=== PATIENT | female | born 1975 | race Caucasian/White ===

== ENCOUNTER 2018-06-02 05:01 | Day surgery (SDC) | payer OTHER ==
[2018-05-31 12:05] VITALS: BMI 29.9
[2018-06-02] MEDS ORDERED: MIDAZOLAM HCL 2 MG/2 ML SINGLE DOSE VIAL ONE (15:20)
[2018-06-02] MEDS ORDERED: LIDOCAINE HCL/PF 2% SDV 5ML VIAL ONE (15:20)
[2018-06-02] MEDS ORDERED: PROPOFOL 20 ML ONE (15:20)
--- NOTE | 2018-06-02 15:24 | HP ---
Admitting History and Physical - Admission Chief Complaint: Multiparity / Desires permanent sterilization History of Present Illness: 43 yo Para 2 desires permanent sterilization. She's pre op for Laparoscopic bilateral tubal ligation. History Source: Patient Limitations to Obtaining History: No Limitations - Past Medical History ...LMP: 05/24/18 ...: No ...Para: 2 - Smoking History Smoking history: Never smoked - Alcohol/Substance Use Hx Alcohol Use: No Home Medications - Allergies Allergies/Adverse Reactions: Allergies Allergy/AdvReac Type Severity Reaction Status Date / Time No Known Allergies Allergy Verified 06/02/18 14:26 - Home Medications Home Medications: Ambulatory Orders NK [No Known Home Medication] 02/09/17 Family Disease History - Family Disease History Family History: Unremarkable Review of Systems - Review of Systems Constitutional: reports: No Symptoms Eyes: reports: No Symptoms HENT: reports: No Symptoms Neck: reports: No Symptoms Cardiovascular: reports: No Symptoms Respiratory: reports: No Symptoms Gastrointestinal: reports: No Symptoms Genitourinary: reports: No Symptoms Breasts: reports: No Symptoms Reported Musculoskeletal: reports: No Symptoms Integumentary: reports: No Symptoms Neurological: reports: No Symptoms Endocrine: reports: No Symptoms Hematology/Lymphatic: reports: No Symptoms Psychiatric: reports: No Symptoms Pain Intensity: 0 Physical Examination Vital Signs: Vital Signs Temperature 98.4 F 06/02/18 14:24 Pulse Rate 100 H 06/02/18 14:24 Respiratory Rate 20 06/02/18 14:24 Blood Pressure 123/60 06/02/18 14:24 O2 Sat by Pulse Oximetry (%) 99 06/02/18 14:24 Constitutional: Yes: Well Nourished Eyes: Yes: Conjunctiva Clear HENT: Yes: Atraumatic Neck: Yes: Supple Cardiovascular: Yes: Regular Rate and Rhythm Respiratory: Yes: Regular Gastrointestinal: Yes: Normal Bowel Sounds Neurological: Yes: Alert, Oriented ...Motor Strength: WNL Psychiatric: Yes: Alert, Oriented Problem List - Problems (1) Multiparity Code(s): Z64.1 - PROBLEMS RELATED TO MULTIPARITY Assessment/Plan Multiparity Pre op for tubal ligation Consent signed Anesthesia to see patient
[2018-06-02] MEDS ORDERED: ONDANSETRON 4 MG/2 ML VIAL IVPUSH PRN (15:37)
[2018-06-02] MEDS ORDERED: oxyCODONE HCL 5 MG TABLET PO PRN (15:37)
[2018-06-02] MEDS ORDERED: ROCURONIUM BROMIDE 50 MG/5 ML VIAL ONE (15:39)
[2018-06-02] MEDS ORDERED: LACTATED RINGERS SOLUTION 1,000 ML IV SCH (15:45)
[2018-06-02] MEDS ORDERED: BUPIVACAINE HCL/PF 0.5% (5MG/ML) 10 ML VIAL ONE (15:57)
[2018-06-02] MEDS ORDERED: BUPIVACAINE HCL/PF (5 MG/ML) 30 ML VIAL IJ ONE (16:34)
[2018-06-02] MEDS ORDERED: NEOSTIGMINE METHYLSULFATE 0.5 MG/ML - 10 ML MDV ONE (16:35)
[2018-06-02] MEDS ORDERED: GLYCOPYRROLATE 0.2 MG/1 ML VIAL ONE (16:35)
--- NOTE | 2018-06-02 16:45 | OP ---
Operative Note - Note: Operative Date: 06/02/18 Pre-Operative Diagnosis: Multiparity Operation: Laparoscopic tubal ligation attempt Findings: Uterus plastered to anterior abdominal wall. Fallopian tubes not visualized. Post-Operative Diagnosis: Same as Pre-op Surgeon: Kiley Bullard Anesthesia: General Estimated Blood Loss (mls): 0
[2018-06-02 19:19] VITALS: BP 130/77; PULSE 69; TEMP 97.9
--- NOTE | 2018-06-04 08:14 | OP ---
DATE OF OPERATION: 06/02/2018 PREOPERATIVE DIAGNOSIS: Multiparous, desires permanent sterilization. POSTOPERATIVE DIAGNOSIS: Multiparous, desires permanent sterilization. PROCEDURE: Laparoscopic bilateral tubal ligation attempt. SURGEON: Kiley Bullard MD ANESTHESIA: General. COMPLICATIONS: None. ESTIMATED BLOOD LOSS: Less than 5 mL. DESCRIPTION OF PROCEDURE: The patient was taken to the operating room where general anesthesia was administered. The patient was then placed in lithotomy position. She was then prepped and draped in proper sterile fashion. A weighted speculum was placed in the vagina. The anterior lip of the cervix was grasped with a single- tooth tenaculum. Then a uterine manipulator was inserted as a means to manipulate the uterus. Attention was then turned to the abdomen where a 5-mm skin incision was made through the umbilical fold. The Veress needle was carefully introduced into the peritoneal cavity while tenting the abdominal wall. Intraperitoneal placement was confirmed by use of a water-filled syringe and dropped in intra-abdominal pressure. The trocar and sleeve were then advanced without difficulty into the abdomen. Intra-abdominal placement was confirmed by the laparoscope. Pneumoperitoneum was obtained with 3 L of CO2 gas then the 5-mm trocar and sleeve were then advanced without difficulty into the abdomen. Intra-abdominal placement was confirmed by the laparoscope. A survey of the patient's pelvis and abdomen revealed a uterus plastered to the anterior abdominal wall. A posterior view of the pelvis revealed the round ligament. The anterior side of the pelvis could not be visualized because the uterus was attached to the anterior abdominal wall. The patient had a myomectomy in the past, so the fallopian tubes could not be visualized. Then the procedure was then aborted. The instruments were removed. The patient was taken out of lithotomy position. She was taken to PACU in stable condition. Sanjana [id number] MTDD
== END 2018-06-02 19:05 | disposition home or self-care (01) ==
LOC: JASU-SURG 05:01
PROVIDERS: ATTEND Obstetrics & Gynecology
PROC: 0U574ZZ Destruction of Bilateral Fallopian Tubes, Percutaneous Endoscopic Approach (ICD-10-PCS; principal; 2018-06-02 15:30)
DX: Z30.2 Encounter for sterilization (principal); N73.6 Female pelvic peritoneal adhesions (postinfective); Z53.8 Procedure and treatment not carried out for other reasons
CPT/HCPCS: 84703; 94760

== ENCOUNTER 2021-06-25 00:16 | Emergency (ER) | payer OTHER ==
[2021-06-25 00:41] VITALS: BP 135/90; PULSE 78; TEMP 97.6; BMI 30.9
[2021-06-25] MEDS ORDERED: ACETAMINOPHEN 1000 MG/100 ML BAG IVPB ONE (00:52)
[2021-06-25] MEDS ORDERED: ONDANSETRON 4 MG/2 ML VIAL IVPUSH ONE (00:52)
[2021-06-25] MEDS ORDERED: ACETAMINOPHEN INJECTION 100 ML IVPB ONE (01:13)
[2021-06-25] MEDS ORDERED: ONDANSETRON 4 MG/2 ML VIAL ONE (01:13)
[2021-06-25] MEDS ORDERED: FAMOTIDINE 20 MG/50 ML IVPB 20 MG/50 ML MG IVPB ONE ×2 (01:46→02:13)
[2021-06-25 02:12] LABS: BASO % 0.4 % (0-2.0); EOS % 0.3 % (0-4.5); HEMATOCRIT 41.4 % (32.4-45.2); HEMOGLOBIN 13.7 GM/dL (10.7-15.3); LYMPH % 10.4 % (8-40); MCH 29.6 pg (25.7-33.7); MCHC 33.2 g/dl (32.0-36.0); MEAN CELL VOLUME 89.4 fl (80-96); MONO % 3.8 % (3.8-10.2); NEUT % 85.1 % (42.8-82.8); PLATELET COUNT 215 10^3/uL (134-434); RBC 4.63 M/mm3 (3.60-5.2); RDW 14.2 % (11.6-15.6); WHITE BLOOD COUNT 10.2 K/mm3 (4.0-10.0)
[2021-06-25 02:33] LABS: ALBUMIN 3.7 g/dl (3.4-5.0); BLOOD UREA NITROGEN 12.9 mg/dL (7-18)
[2021-06-25 02:35] LABS: CREATININE 0.9 mg/dL (0.55-1.3)
[2021-06-25 02:37] LABS: BILIRUBIN,TOTAL 0.5 mg/dL (0.2-1); TOT PROT 7.3 g/dl (6.4-8.2)
[2021-06-25 03:24] LABS: EPI CELLS 9 /uL (0-25.1); HCG,QUALITATIVE URINE Negative; HYALINE CASTS 1 /uL (0-3.1); URINE APPEARANCE CLEAR; URINE BACTERIA 49 /uL (0-1359); URINE BILIRUBIN NEGATIVE (NEGATIVE); URINE COLOR ORANGE; URINE GLUCOSE (UA) NEGATIVE (NEGATIVE); URINE KETONE TRACE (NEGATIVE); URINE LEUK ESTERASE NEGATIVE (NEGATIVE); URINE NITRITE NEGATIVE (NEGATIVE); URINE PROTEIN 1+ (NEGATIVE); URINE RBC 4031 /uL (0-23.9); URINE UROBILINOGEN 0.2 mg/dL (0.2-1.0); URINE WBC 27 /uL (0-25.8)
== END 2021-06-25 06:15 | disposition home or self-care (01) ==
LOC: JER 00:16
PROC: 3E033GC Introduction of Other Therapeutic Substance into Peripheral Vein, Percutaneous Approach (ICD-10-PCS; principal; 2021-06-25)
DX: R10.11 Right upper quadrant pain (principal); R10.31 Right lower quadrant pain
CPT/HCPCS: 36415; 74177-TC; 76705-TC; 80053; 81003; 83690; 84484; 84703; 85025; 87086; 93005; 93010; 96365; 96375; 99285-25

== ENCOUNTER → 2021-08-06 | Day surgery (SDC) | payer OTHER ==
[2021-08-04 11:55] VITALS: BMI 29.4
[~2021-08-06] MED LIST: DEXAMETHASONE SOD PHOSPHATE 4 MG/1 ML VIAL ONE; IBUPROFEN 800 MG/8 ML IJ IVPB PRN; KETOROLAC TROMETHAMINE 30 MG/1 ML VIAL ONE; LACTATED RINGERS SOLUTION 1,000 ML IV SCH; LIDOCAINE HCL/PF 2% SDV 5ML VIAL ONE; MIDAZOLAM HCL 2 MG/2 ML SINGLE DOSE VIAL ONE; NEOSTIGMINE METHYLSULFATE 0.5 MG/ML - 10 ML MDV ONE; ONDANSETRON 4 MG/2 ML VIAL IVPUSH PRN; PHENYLEPHRINE HCL 10 MG/1 ML SINGLE DOSE VIAL ONE; PROMETHAZINE HCL 25 MG/1 ML VIAL IVPUSH PRN; PROPOFOL 20 ML ONE; SUCCINYLCHOLINE CHLORIDE 200 MG/10 ML SYRINGE ONE; ceFAZolin SODIUM 1 GM VIAL IVPB ONE; oxyCODONE HCL 5 MG TABLET PO PRN
[2021-08-06 17:43] VITALS: BP 108/67; PULSE 68; TEMP 98.2
== END | disposition home or self-care (01) ==
LOC: JASUSAT 04:15
PROVIDERS: ATTEND Specialist
PROC: 0WJJ4ZZ Inspection of Pelvic Cavity, Percutaneous Endoscopic Approach (ICD-10-PCS; principal; 2021-08-06 12:00)
DX: N73.6 Female pelvic peritoneal adhesions (postinfective) (principal); N85.2 Hypertrophy of uterus; D25.9 Leiomyoma of uterus, unspecified
CPT/HCPCS: 81025; 94760

== ENCOUNTER 2021-09-17 04:13 | Inpatient (IN) | payer OTHER ==
[2021-09-12 13:56] VITALS: BMI 29.1
[~2021-09-17 04:13] MED LIST changes: +CEFAZOLIN 2 GM in DEXTROSE 5%-WATER - 100 ML IVPB ONE; -DEXAMETHASONE SOD PHOSPHATE 4 MG/1 ML VIAL ONE; -IBUPROFEN 800 MG/8 ML IJ IVPB PRN; -KETOROLAC TROMETHAMINE 30 MG/1 ML VIAL ONE; -LACTATED RINGERS SOLUTION 1,000 ML IV SCH; -LIDOCAINE HCL/PF 2% SDV 5ML VIAL ONE; -MIDAZOLAM HCL 2 MG/2 ML SINGLE DOSE VIAL ONE; -NEOSTIGMINE METHYLSULFATE 0.5 MG/ML - 10 ML MDV ONE; -ONDANSETRON 4 MG/2 ML VIAL IVPUSH PRN; -PHENYLEPHRINE HCL 10 MG/1 ML SINGLE DOSE VIAL ONE; -PROMETHAZINE HCL 25 MG/1 ML VIAL IVPUSH PRN; -PROPOFOL 20 ML ONE; -SUCCINYLCHOLINE CHLORIDE 200 MG/10 ML SYRINGE ONE; -ceFAZolin SODIUM 1 GM VIAL IVPB ONE; -oxyCODONE HCL 5 MG TABLET PO PRN
[2021-09-17] MEDS ORDERED: MIDAZOLAM HCL 2 MG/2 ML SINGLE DOSE VIAL ONE ×2 (07:15)
[2021-09-17] MEDS ORDERED: ROCURONIUM BROMIDE 50 MG/5 ML SYRINGE ONE ×2 (07:15→08:39)
[2021-09-17] MEDS ORDERED: FENTANYL CITRATE/PF 50 MCG/ML VIAL ONE ×9 (07:15→13:54)
[2021-09-17] MEDS ORDERED: PROPOFOL 20 ML ONE (07:15)
[2021-09-17] MEDS ORDERED: BUPIVACAINE HCL/PF 0.25% (2.5MG/ML) 10 ML VIAL ONE (07:24)
[2021-09-17] MEDS ORDERED: BUPIVACAINE LIPOSOME/PF (EXPAREL) 266 MG/20 ML VIAL ONE (07:24)
[2021-09-17] MEDS ORDERED: ceFAZolin SODIUM 1 GM VIAL IVPB ONE (08:25)
[2021-09-17] MEDS ORDERED: DEXAMETHASONE SOD PHOSPHATE 4 MG/1 ML VIAL ONE (08:32)
[2021-09-17] MEDS ORDERED: HYDROmorphone HCl 2 MG/ML VIAL ONE (10:20)
[2021-09-17] MEDS ORDERED: BISACODYL 5 MG TABLET.DR (FP) PO PRN (12:19)
[2021-09-17] MEDS ORDERED: ONDANSETRON 4 MG/2 ML VIAL IVPUSH PRN ×3 (12:19)
[2021-09-17] MEDS ORDERED: oxyCODONE HCL 5 MG TABLET PO PRN ×2 (12:19)
[2021-09-17] MEDS: IBUPROFEN 800 MG/8 ML IJ IVPB PRN ×2 (13:10→19:55)
[2021-09-17] MEDS ORDERED: HYDROmorphone *PCA* 10MG/50ML DISP.SYRIN PCA SCH (14:15)
[2021-09-17] MEDS: LACTATED RINGERS SOLUTION 1,000 ML IV SCH (14:25)
[2021-09-17] MEDS ORDERED: ceFAZolin SODIUM 1 GM VIAL ONE (17:04)
[2021-09-17] MEDS ORDERED: DEXTROSE 5%-WATER - 50 ML IVPB ONE (17:04)
[2021-09-17] MEDS: CEFAZOLIN 1 GM in DEXTROSE 5%-WATER - 50 ML IVPB SCH (17:08)
[2021-09-17] MEDS ORDERED: ACETAMINOPHEN 1000 MG/100 ML BAG IVPB PRN (19:39)
[2021-09-17] MEDS ORDERED: IBUPROFEN 800 MG/8 ML IJ IVPB PRN (19:40)
[2021-09-18] MEDS ORDERED: DEXTROSE 5%-WATER - 50 ML IVPB ONE ×2 (00:16→09:01)
[2021-09-18] MEDS ORDERED: ceFAZolin SODIUM 1 GM VIAL ONE ×2 (00:16→09:02)
[2021-09-18] MEDS: LACTATED RINGERS SOLUTION 1,000 ML IV SCH (00:18)
[2021-09-18] MEDS: CEFAZOLIN 1 GM in DEXTROSE 5%-WATER - 50 ML IVPB SCH ×2 (00:18→09:19)
[2021-09-18] MEDS: IBUPROFEN 800 MG/8 ML IJ IVPB PRN (04:14)
[2021-09-18] MEDS ORDERED: oxyCODONE HCL 5 MG TABLET PO PRN ×3 (08:52→09:12)
[2021-09-18 10:06] LABS: HEMATOCRIT 33.4 % (32.4-45.2); HEMOGLOBIN 11.1 GM/dL (10.7-15.3); MCH 29.7 pg (25.7-33.7); MCHC 33.1 g/dl (32.0-36.0); MEAN CELL VOLUME 89.9 fl (80-96); MEAN PLT VOLUME 9.8 fl (7.5-11.1); PLATELET COUNT 181 10^3/uL (134-434); RBC 3.72 M/mm3 (3.60-5.2); RDW 13.8 % (11.6-15.6); WHITE BLOOD COUNT 9.3 K/mm3 (4.0-10.0)
[2021-09-18 10:40] LABS: CALCIUM 8.2 mg/dL (8.5-10.1)
[2021-09-18 10:41] LABS: BLOOD UREA NITROGEN 7.9 mg/dL (7-18)
[2021-09-18 10:43] LABS: CREATININE 0.7 mg/dL (0.55-1.3)
[2021-09-18] MEDS ORDERED: LACTATED RINGERS SOLUTION 1,000 ML IV SCH (10:46)
[2021-09-18] MEDS: ACETAMINOPHEN 1000 MG/100 ML BAG IVPB PRN (20:37)
[2021-09-19] MEDS ORDERED: LACTATED RINGERS SOLUTION 500 ML IV SCH (08:16)
[2021-09-19 08:53] LABS: BASO % 0.4 % (0-2.0); EOS % 0.5 % (0-4.5); HEMATOCRIT 31.3 % (32.4-45.2); HEMOGLOBIN 10.2 GM/dL (10.7-15.3); LYMPH % 16.7 % (8-40); MCH 29.6 pg (25.7-33.7); MCHC 32.6 g/dl (32.0-36.0); MEAN CELL VOLUME 90.8 fl (80-96); MONO % 6.6 % (3.8-10.2); NEUT % 75.8 % (42.8-82.8); PLATELET COUNT 160 10^3/uL (134-434); RBC 3.45 M/mm3 (3.60-5.2); WHITE BLOOD COUNT 8.6 K/mm3 (4.0-10.0)
[2021-09-19 09:16] LABS: CALCIUM 7.9 mg/dL (8.5-10.1)
[2021-09-19 09:17] LABS: ALBUMIN 2.7 g/dl (3.4-5.0); BLOOD UREA NITROGEN 6.9 mg/dL (7-18)
[2021-09-19 09:20] LABS: CREATININE 0.5 mg/dL (0.55-1.3); PHOSPHOROUS 1.6 mg/dL (2.5-4.9)
[2021-09-19 09:22] LABS: BILIRUBIN,TOTAL 0.4 mg/dL (0.2-1); TOT PROT 5.6 g/dl (6.4-8.2)
[2021-09-19] MEDS ORDERED: HEPARIN NA (PORCINE) 5,000 UNITS/ML 1ML VIAL SQ SCH (10:00)
[2021-09-19] MEDS: ACETAMINOPHEN 1000 MG/100 ML BAG IVPB PRN (11:22)
[2021-09-19] MEDS ORDERED: NAPH,MB-DB/K PH,MBDB POWDER PACKET PO ONE (11:45)
[2021-09-19] MEDS: HEPARIN NA (PORCINE) 5,000 UNITS/ML 1ML VIAL SQ SCH ×2 (14:48→22:24)
[2021-09-19] MEDS: ACETAMINOPHEN 325 MG TABLET (FP) PO PRN (17:32)
[2021-09-20] MEDS: HEPARIN NA (PORCINE) 5,000 UNITS/ML 1ML VIAL SQ SCH ×3 (06:11→21:10)
[2021-09-20] MEDS: ACETAMINOPHEN 325 MG TABLET (FP) PO PRN (06:11)
[2021-09-20 09:24] LABS: BASO % 0.5 % (0-2.0); EOS % 2.4 % (0-4.5); HEMATOCRIT 30.2 % (32.4-45.2); HEMOGLOBIN 10.1 GM/dL (10.7-15.3); LYMPH % 21.7 % (8-40); MCH 29.8 pg (25.7-33.7); MCHC 33.4 g/dl (32.0-36.0); MEAN CELL VOLUME 89.3 fl (80-96); MEAN PLT VOLUME 9.3 fl (7.5-11.1); MONO % 6.8 % (3.8-10.2); NEUT % 68.6 % (42.8-82.8); PLATELET COUNT 167 10^3/uL (134-434); RBC 3.38 M/mm3 (3.60-5.2); RDW 13.9 % (11.6-15.6); WHITE BLOOD COUNT 6.3 K/mm3 (4.0-10.0)
[2021-09-20 09:56] LABS: ALBUMIN 2.7 g/dl (3.4-5.0); CALCIUM 8.1 mg/dL (8.5-10.1)
[2021-09-20 09:57] LABS: BLOOD UREA NITROGEN 5.3 mg/dL (7-18)
[2021-09-20 09:58] LABS: PHOSPHOROUS 2.1 mg/dL (2.5-4.9)
[2021-09-20 09:59] LABS: CREATININE 0.6 mg/dL (0.55-1.3)
[2021-09-20 10:00] LABS: BILIRUBIN,TOTAL 0.5 mg/dL (0.2-1)
[2021-09-20 10:01] LABS: TOT PROT 5.8 g/dl (6.4-8.2)
[2021-09-20] MEDS ORDERED: POTASSIUM PHOSPHATE 30 MM in SODIUM CHLORIDE 500 ML IVPB ONE (10:05)
[2021-09-20] MEDS: IBUPROFEN 600 MG TABLET (FP) PO PRN (21:08)
[2021-09-21] MEDS: IBUPROFEN 600 MG TABLET (FP) PO PRN ×2 (03:13→10:42)
[2021-09-21] MEDS: HEPARIN NA (PORCINE) 5,000 UNITS/ML 1ML VIAL SQ SCH (05:41)
[2021-09-21] MEDS: ACETAMINOPHEN 325 MG TABLET (FP) PO PRN (05:41)
[2021-09-21 05:46] VITALS: BP 102/67; PULSE 78; TEMP 98.2
[2021-09-21 10:02] LABS: BASO % 0.8 % (0-2.0); EOS % 3.3 % (0-4.5); HEMATOCRIT 31.4 % (32.4-45.2); HEMOGLOBIN 10.3 GM/dL (10.7-15.3); LYMPH % 28.3 % (8-40); MCH 29.4 pg (25.7-33.7); MCHC 32.7 g/dl (32.0-36.0); MEAN CELL VOLUME 89.8 fl (80-96); MEAN PLT VOLUME 9.8 fl (7.5-11.1); MONO % 4.8 % (3.8-10.2); NEUT % 62.8 % (42.8-82.8); PLATELET COUNT 204 10^3/uL (134-434); RDW 13.9 % (11.6-15.6); WHITE BLOOD COUNT 5.9 K/mm3 (4.0-10.0)
[2021-09-21 10:13] LABS: CALCIUM 8.4 mg/dL (8.5-10.1)
[2021-09-21 10:14] LABS: ALBUMIN 2.8 g/dl (3.4-5.0); BLOOD UREA NITROGEN 7.8 mg/dL (7-18)
[2021-09-21 10:17] LABS: CREATININE 0.5 mg/dL (0.55-1.3); PHOSPHOROUS 2.7 mg/dL (2.5-4.9)
[2021-09-21 10:18] LABS: BILIRUBIN,TOTAL 0.6 mg/dL (0.2-1); TOT PROT 5.5 g/dl (6.4-8.2)
== END 2021-09-21 13:30 | disposition home or self-care (01) | DRG 519 ==
LOC: JASU-SURG 04:13 → J2C 12:19 → J3W 15:42
PROVIDERS: ADMIT Specialist; ATTEND Internal Medicine
PROC: 8E0W0CZ Robotic Assisted Procedure of Trunk Region, Open Approach (ICD-10-PCS; 2021-09-17)
PROC: 0UT90ZZ Resection of Uterus, Open Approach (ICD-10-PCS; principal; 2021-09-17 08:00)
PROC: 0UT70ZZ Resection of Bilateral Fallopian Tubes, Open Approach (ICD-10-PCS; 2021-09-17 08:00)
PROC: 0UJD4ZZ Inspection of Uterus and Cervix, Percutaneous Endoscopic Approach (ICD-10-PCS; 2021-09-17 08:00)
PROC: 0DNW0ZZ Release Peritoneum, Open Approach (ICD-10-PCS; 2021-09-20)
PROC: 0DB80ZZ Excision of Small Intestine, Open Approach (ICD-10-PCS; 2021-09-20)
PROC: 0D180Z8 Bypass Small Intestine to Small Intestine, Open Approach (ICD-10-PCS; 2021-09-20)
DX: D25.9 Leiomyoma of uterus, unspecified (principal); R10.2 Pelvic and perineal pain; K66.0 Peritoneal adhesions (postprocedural) (postinfection); E83.39 Other disorders of phosphorus metabolism; Z53.31 Laparoscopic surgical procedure converted to open procedure
CPT/HCPCS: 36415; 74018-TC-FY; 80048; 80053; 81025; 83735; 84100; 85025; 85027; 86850; 86900; 86901; 88302-TC; 88305-TC; 88307-TC; 94010; 94760; J1644

== ENCOUNTER 2021-09-25 07:18 | Inpatient (IN) | payer OTHER ==
[2021-09-25] MEDS ORDERED: morphine CARPU-JECT 4 MG/1 ML DISP.SYRIN IVPUSH ONE (08:06)
[2021-09-25] MEDS ORDERED: ACETAMINOPHEN 1000 MG/100 ML BAG IVPB ONE ×2 (08:06→14:25)
[2021-09-25] MEDS ORDERED: ONDANSETRON 4 MG/2 ML VIAL IVPUSH ONE ×2 (08:07→18:30)
[2021-09-25] MEDS ORDERED: SODIUM CHLORIDE 0.9% 1000 ML INFUS.BAG IV ONE (08:07)
[2021-09-25] MEDS ORDERED: ONDANSETRON 4 MG/2 ML VIAL ONE (08:16)
[2021-09-25] MEDS ORDERED: ACETAMINOPHEN INJECTION 100 ML IVPB ONE (08:16)
[2021-09-25] MEDS ORDERED: morphine SULFATE 4 MG/ML VIAL ONE (08:16)
[2021-09-25 09:25] LABS: INR 1.08 (0.83-1.09); PROTHROMBIN TIME (PATIENT) 12.4 SEC (9.7-13.0)
[2021-09-25 09:28] LABS: ACTIVATED PTT 33.9 SECONDS (25.2-36.5); BASO % 0.4 % (0-2.0); EOS % 0.6 % (0-4.5); HEMATOCRIT 34.6 % (32.4-45.2); HEMOGLOBIN 11.6 GM/dL (10.7-15.3); LYMPH % 6.6 % (8-40); MCH 29.9 pg (25.7-33.7); MCHC 33.6 g/dl (32.0-36.0); MEAN CELL VOLUME 89.1 fl (80-96); MONO % 4.2 % (3.8-10.2); NEUT % 88.2 % (42.8-82.8); PLATELET COUNT 272 10^3/uL (134-434); RBC 3.89 M/mm3 (3.60-5.2); RDW 13.9 % (11.6-15.6); WHITE BLOOD COUNT 9.7 K/mm3 (4.0-10.0)
[2021-09-25 09:40] LABS: CALCIUM 9.1 mg/dL (8.5-10.1)
[2021-09-25 09:41] LABS: ALBUMIN 3.3 g/dl (3.4-5.0); BLOOD UREA NITROGEN 8.1 mg/dL (7-18)
[2021-09-25 09:45] LABS: CREATININE 0.7 mg/dL (0.55-1.3)
[2021-09-25 09:46] LABS: BILIRUBIN,TOTAL 0.3 mg/dL (0.2-1)
[2021-09-25] MEDS: SODIUM CHLORIDE 1,000 ML IV SCH ×2 (13:00→20:47)
[2021-09-25] MEDS ORDERED: ACETAMINOPHEN 1000 MG/100 ML BAG IVPB PRN (14:25)
[2021-09-25] MEDS ORDERED: ENOXAPARIN NA (PORCINE) 40 MG/0.4 ML DISP.SYRIN SQ ONE (15:04)
[2021-09-25] MEDS: ENOXAPARIN NA (PORCINE) 40 MG/0.4 ML DISP.SYRIN SQ SCH (15:25)
[2021-09-25 16:28] VITALS: BMI 28.6
[2021-09-26 01:50] LABS: EPI CELLS 14 /uL (0-25.1); HYALINE CASTS 2 /uL (0-3.1); URINE APPEARANCE CLEAR; URINE BACTERIA 359 /uL (0-1359); URINE BILIRUBIN NEGATIVE (NEGATIVE); URINE COLOR YELLOW; URINE GLUCOSE (UA) NEGATIVE (NEGATIVE); URINE KETONE 1+ (NEGATIVE); URINE LEUK ESTERASE TRACE (NEGATIVE); URINE NITRITE NEGATIVE (NEGATIVE); URINE PROTEIN NEGATIVE (NEGATIVE); URINE RBC 10 /uL (0-23.9); URINE UROBILINOGEN 0.2 mg/dL (0.2-1.0); URINE WBC 75 /uL (0-25.8)
[2021-09-26] MEDS: SODIUM CHLORIDE 1,000 ML IV SCH ×2 (06:07→14:14)
[2021-09-26 09:04] LABS: BASO % 0.3 % (0-2.0); EOS % 1.1 % (0-4.5); HEMATOCRIT 31.1 % (32.4-45.2); HEMOGLOBIN 10.4 GM/dL (10.7-15.3); LYMPH % 11.2 % (8-40); MCHC 33.3 g/dl (32.0-36.0); MEAN PLT VOLUME 9.4 fl (7.5-11.1); NEUT % 79.4 % (42.8-82.8); PLATELET COUNT 275 10^3/uL (134-434); RBC 3.46 M/mm3 (3.60-5.2); RDW 13.7 % (11.6-15.6); WHITE BLOOD COUNT 9.6 K/mm3 (4.0-10.0)
[2021-09-26 09:08] LABS: INR 1.15 (0.83-1.09); PROTHROMBIN TIME (PATIENT) 13.2 SEC (9.7-13.0)
[2021-09-26 09:10] LABS: ACTIVATED PTT 32.2 SECONDS (25.2-36.5)
[2021-09-26 09:40] LABS: BLOOD UREA NITROGEN 8.9 mg/dL (7-18); CALCIUM 8.1 mg/dL (8.5-10.1); MAGNESIUM 2.2 mg/dL (1.8-2.4)
[2021-09-26 09:43] LABS: CREATININE 0.7 mg/dL (0.55-1.3); PHOSPHOROUS 3.1 mg/dL (2.5-4.9)
[2021-09-26 09:44] LABS: BILIRUBIN,TOTAL 0.3 mg/dL (0.2-1); TOT PROT 5.6 g/dl (6.4-8.2)
[2021-09-26 09:48] LABS: ALBUMIN 2.6 g/dl (3.4-5.0)
[2021-09-26] MEDS: ENOXAPARIN NA (PORCINE) 40 MG/0.4 ML DISP.SYRIN SQ SCH (10:02)
[2021-09-27] MEDS: SODIUM CHLORIDE 1,000 ML IV SCH ×3 (05:30→21:42)
[2021-09-27] MEDS: ENOXAPARIN NA (PORCINE) 40 MG/0.4 ML DISP.SYRIN SQ SCH (09:47)
[2021-09-28] MEDS: SODIUM CHLORIDE 1,000 ML IV SCH (06:12)
[2021-09-28] MEDS: ENOXAPARIN NA (PORCINE) 40 MG/0.4 ML DISP.SYRIN SQ SCH (09:57)
[2021-09-28 13:19] VITALS: BP 112/74; PULSE 80; TEMP 98.5
== END 2021-09-28 14:13 | disposition home or self-care (01) | DRG 252 ==
LOC: JER 07:18 → JERBED 12:57 → J8W 16:08
PROVIDERS: ADMIT Internal Medicine; ATTEND Internal Medicine
DX: K91.31 Postprocedural partial intestinal obstruction (principal); Y83.8 Other surgical procedures as the cause of abnormal reaction of the patient, or of later complication, without mention of misadventure at the time of the procedure
CPT/HCPCS: 36415; 71045-TC-FY; 74019-TC-FY; 74177-TC; 80053; 81003; 83735; 84100; 85025; 85610; 85730; 86850; 86900; 86901; 93005; 93010; 99285-25; C9803-CS; Q9967; U0003; U0005

== ENCOUNTER 2024-11-05 21:40 | Emergency (ER) | payer OTHER ==
[2024-11-05 21:51] VITALS: BP 110/77; PULSE 81; RESP 18; TEMP 98.5; BMI 29.9
[2024-11-05] MEDS ORDERED: BACITRACIN ZINC 15 GM TUBE TOPICAL OINTMENT ONE (23:41)
[2024-11-05] MEDS ORDERED: DIPHTH,PERTUSS(ACELL),TET 0.5 ML DISP.SYRIN IM ONE (23:53)
[2024-11-05] MEDS: DIPHTH,PERTUSS(ACELL),TET 0.5 ML DISP.SYRIN IM ONE (23:54)
[2024-11-05] MEDS: BACITRACIN ZINC 15 GM TUBE TOPICAL OINTMENT TP ONE (23:54)
[2024-11-06] MEDS: IBUPROFEN 600 MG TABLET (FP) PO ONE (00:04)
[2024-11-06] MEDS ORDERED: IBUPROFEN 600 MG TABLET (FP) PO ONE (00:04)
== END 2024-11-05 23:56 | disposition home or self-care (01) ==
LOC: JER 21:40 → JERFT 21:40
PROC: 0HQFXZZ Repair Right Hand Skin, External Approach (ICD-10-PCS; principal; 2024-11-05)
PROC: 3E0234Z Introduction of Serum, Toxoid and Vaccine into Muscle, Percutaneous Approach (ICD-10-PCS; 2024-11-05)
DX: S61.011A Laceration without foreign body of right thumb without damage to nail, initial encounter (principal); Z23 Encounter for immunization; W26.0XXA Contact with knife, initial encounter
CPT/HCPCS: 12001-25; 90471; 90715; 99284-25